=== PATIENT | male | born 1965 | race Caucasian/White ===

== ENCOUNTER 2017-07-11 21:06 | Inpatient (IN) ==
[2017-07-11] MEDS ORDERED: ASPIRIN 81 MG TAB.CHEW ONE (21:14)
[2017-07-11] MEDS ORDERED: NITROGLYCERIN 0.4 MG/TAB BTL SL PRN (21:15)
[2017-07-11] MEDS ORDERED: ASPIRIN 81 MG TAB.CHEW PO ONE (21:15)
[2017-07-11] MEDS ORDERED: NORMAL SALINE 1,000 ML IV ONE (21:35)
[2017-07-11 21:39] LABS: Mean Cell Volume 64.1 fl (78-100); Mean Corpuscular Hemoglobin 16.5 pg (27-31); Mean Corpuscular Hgb Conc 25.8 g/dl (32-36); Mean Platelet Volume 10.9 fl (6.0-9.5); Platelet Count 293 K/mm3 (150-450); Red Blood Count 3.45 M/mm3 (4.7-6.0); Red Cell Distribution Width 21.1 % (11.5-14.0); White Blood Count 5.2 K/mm3 (4.0-10.5)
[2017-07-11 21:41] LABS: Hematocrit 22.1 % (42.0-52.0); Hemoglobin 5.7 gm/dL (13.5-18.0)
[2017-07-11 21:42] LABS: Total Cells Counted 100
[2017-07-11 21:48] LABS: Partial Thrombolplastin Time 21.9 Seconds (24-32)
[2017-07-11 21:49] LABS: ALT 17 U/L (19-67); AST 7 U/L (0-48); Albumin * 3.5 gm/dl (3.4-5.0); Alkaline Phosphatase * 75 U/L (50-170); Anion Gap 12.8 mmol/L (6.8-13.8); BUN/Creatinine Ratio 21.7 (9.0-21.6); Bilirubin, Total 0.3 mg/dL (0.0-1.1); Blood Urea Nitrogen 18 mg/dL (6-23); Ca. Corrected For Albumin 8.5 mg/dL (8.4-10.2); Calcium * 8.4 mg/dL (7.9-10.9); Carbon Dioxide 27.3 mmol/L (24-32.6); Chloride 105 mmol/L (97-106); Glucose * 120 mg/dL (70-110); Potassium 4.1 mmol/L (3.4-4.6); Sodium 141 mmol/L (132-142); Total Protein 6.8 gm/dL (6.2-8.2); Troponin I Less than 0.017 ng/ml (0.00-0.10)
[2017-07-11 22:04] LABS: Atypical (Reactive) Lymph 2 % (0-2); Basophil 1 % (0-1); Eosinophil 2 % (0-3); Lymphocyte 24 % (20-51); Monocyte 2 % (0-9); Neutrophil 69 % (42-75); Neutrophil # 3.6 K/mm3 (1.3-6.0)
[2017-07-11 22:08] LABS: Anisocytosis 2+; Hypochromia 3+; Platelet Estimate Normal (NORMAL)
--- NOTE | 2017-07-11 22:09 | ERNOTE ---
Chest Pain/Cardiac HPI Date of Service: 07/11/17 Chief Complaint: Chest Pain Time Seen by Provider: 07/11/17 21:14 Source: patient Exam Limitations: no limitations Immunizations: IMMUNIZATION HX Immunizations Up to Date Yes History of Influenza Vaccine No Hx Pneumococcal Vaccination No Allergies/Adverse Reactions: Allergies No Known Allergies Allergy (Verified 07/11/17 21:19) Home Medications: HOME MEDICATIONS Multivitamin [Daily Vitamin] 1 each PO DAILY 09/01/13 [Last Taken Unknown] Ubidecarenone [Coq10] 50 mg PO DAILY 09/01/13 [Last Taken Unknown] Aspirin [Aspirin EC] 81 mg PO DAILY #30 tablet. 12/19/14 [Last Taken Unknown] Nitroglycerin 0.4 mg SL ONCE PRN #10 tab.subl 12/19/14 [Last Taken Unknown] Narrative: Pt. comes in with c/o L chest pain that radiates into his L arm and back 10/25 that started at 1730 just prior to arrival when he was pushig a cart at [facility]. Pt. denies any fever, SOB, CP, NVD, alleviating or aggravating factors. Pt. denies any heart history personally but does state that dad had his first OK when he was his age and had a triple bipass a year ago. Timing: getting worse Severity/Quality: moderate, sharp Location: left chest Chest Pain Radiation: arms, back Activities at Onset: activity Modifying Factors - Worsens: Present: nothing Nitro Today/Relief: no nitro taken today Aspirin Treatment Today: no aspirin today Associated Symptoms: Present: shortness of breath, diaphoresis Prior Chest Pain/Cardiac Workup: Reports: no prior cardiac workup. Denies: non- cardiac, angina, heart attack, cardiac cath, echocardiogram, stress test, pulmonary embolism Prior Treatment: Denies: recently seen, treated by physician, recently hospitalized, currently on antibiotics Review of Systems - Review of Systems Constitutional: Present: fatigue. Absent: fever, chills, weakness, malaise EYE: Present: no symptoms reported. Absent: eye pain, double vision ENT: Present: no symptoms reported. Absent: nose pain, nose congestion, nasal drainage, sore throat Respiratory: Present: shortness of breath - with activity. Absent: cough, wheezing Cardiology: Present: chest pain, edema - trace RLE normal for pt.. Absent: palpitations Gastrointestinal/Abdominal: Present: no symptoms reported. Absent: nausea, vomiting, diarrhea, abdominal pain Genitourinary: Present: no symptoms reported. Absent: frequency, decreased urinary output Musculoskeletal: Present: no symptoms reported. Absent: back pain, neck pain, joint pain Skin: Present: no symptoms reported. Absent: rash, change in hair/nails Neurological: Present: no symptoms reported. Absent: headache, dizziness/light- headedness, numbness, tingling All Other Systems: All systems neg except as marked - Patient's Past Medical History Patient History - Medical: No pertinent hx Patient History - Cardiac/Respiratory: No pertinent hx Patient History - Cancer: No Hx of Cancer Patient History - Surgical Procedures: Other Patient History - Other: None - Family History Father Family History - Cardiac/Respiratory: Coronary Heart Disease, Other Brother Family History - Cardiac/Respiratory: Coronary Heart Disease - Social History Living Situations: home Abuse History: No History of abuse Psych History: No pertinent hx Smoking Status: Never smoker Have you smoked in the past 12 months: No Do you dip or chew tobacco: No Alcohol Use: occasionally Drug Use: none - Immunizations Immunizations Up to Date: Yes Hx Pneumococcal Vaccination: No History of Influenza Vaccine: No Physical Exam - Physical Exam General Appearance: Present: wd/wn, alert, no apparent distress Head Exam: Present: normal inspection, no evidence of injury, no tenderness w palpation Eye Exam: Normal inspection: bilateral Ears, Nose, Throat: Present: normal ENT inspection, normal pharynx Neck: Present: normal inspection, nontender, supple, full range of motion. Absent: lymphadenopathy (R), lymphadenopathy (L) Respiratory: Present: no respiratory distress, normal breath sounds, no accessory muscle use, lungs clear, chest tenderness - L lateral chest Cardiovascular/Chest: Present: regular rate, rhythm, no murmur, normal peripheral pulses Gastrointestinal/Abdominal: Present: normal bowel sounds, nontender, nondistended, soft, no organomegaly Back Exam: Present: normal inspection Extremity Exam: Present: normal inspection Neurological Exam: Present: alert, oriented, normal mood/affect, no motor/ sensory deficits Skin Exam: Present: diaphoresis, pallor ED Progress - Date and Time Seen: Date and Time: 07/12/17 00:20 Discussed with madisyn who discussed with Dr Larkin and she would like a repeat Troponin and D-Dimer and possibly a RLE US prior to admission. Will hold off on the US at this time as I have no reason to US this pt. at this time with negative clementina's sign and negative for calf tenderness and chronically R greater than left nonspecific LE edema non pitting. 07/12/17 01:10 Discussed with Madisyn and she agrees to admit pt for observation for Anemia and R /O CP. - Results and Orders Patient's Lab Results:: I have reviewed the patient's lab results. Results and Orders: Laboratory Results - last 24 hr 07/11/17 07/11/17 07/11/17 21:23 21:23 21:23 WBC 5.2 RBC 3.45 L Hgb 5.7 L* Hct 22.1 L* MCV 64.1 L MCH 16.5 L MCHC 25.8 L RDW 21.1 H Plt Count 293 MPV 10.9 H Neutrophils % (Manual) 69 Lymphocytes % (Manual) 24 Monocytes % (Manual) 2 Eosinophils % (Manual) 2 Basophils % (Manual) 1 Neutrophils # (Manual) 3.6 Lymphocytes # (Manual) 1.2 L Monocytes # (Manual) 0.1 Eosinophils # (Manual) 0.1 Basophils # (Manual) 0.1 Atypic/Reactive Lymphs 2 Platelet Estimate Normal Hypochromasia 3+ Anisocytosis 2+ Elliptocytes 1+ Schistocytes 1+ PT 10.0 INR (Anticoag Therapy) 1.00 PTT (Jenny) 21.9 L Sodium 141 Plasma Sodium 141 Potassium 4.1 Chloride 105 Carbon Dioxide 27.3 Anion Gap 12.8 BUN 18 Creatinine 0.83 Est GFR (Non-Af Amer) 104 D BUN/Creatinine Ratio 21.7 H Random Glucose 120 H Calcium 8.4 Calcium Adj for Albumin 8.5 Total Bilirubin 0.3 AST 7 ALT 17 L Alkaline Phosphatase 75 Troponin I Less than 0.017 Total Protein 6.8 Albumin 3.5 Stool Occult Blood Blood Type Antibody Screen Crossmatch 07/11/17 07/11/17 07/11/17 21:57 22:49 23:31 WBC RBC Hgb 5.4 L* Hct 21.6 L* MCV MCH MCHC RDW Plt Count MPV Neutrophils % (Manual) Lymphocytes % (Manual) Monocytes % (Manual) Eosinophils % (Manual) Basophils % (Manual) Neutrophils # (Manual) Lymphocytes # (Manual) Monocytes # (Manual) Eosinophils # (Manual) Basophils # (Manual) Atypic/Reactive Lymphs Platelet Estimate Hypochromasia Anisocytosis Elliptocytes Schistocytes PT INR (Anticoag Therapy) PTT ([place]) Sodium Plasma Sodium Potassium Chloride Carbon Dioxide Anion Gap BUN Creatinine Est GFR (Non-Af Amer) BUN/Creatinine Ratio Random Glucose Calcium Calcium Adj for Albumin Total Bilirubin AST ALT Alkaline Phosphatase Troponin I Total Protein Albumin Stool Occult Blood Negative Blood Type O Negative Antibody Screen Negative Crossmatch See Detail - Vital Signs Patient's Vital Signs:: I have reviewed the patient's vital signs. Vital Signs: Vital Signs 07/11/17 07/11/17 07/11/17 21:16 21:17 21:22 Temperature 36.3 C L 36.7 C Pulse Rate 69 62 64 Respiratory 13 18 18 Rate Blood Pressure 127/73 127/73 74/34 O2 Sat by Pulse 99 98 98 Oximetry - EKG EKG: RBBB, other - SR with First degree av block EKG read: Interp. by me - Progress/Reassessment Chief Complaint: Chest Pain Progress:: Improved Departure Clinical Impression: Chest pain Qualifiers: Chest pain type: unspecified Qualified Code(s): R07.9 - Chest pain, unspecified Anemia Qualifiers: Anemia type: unspecified type Qualified Code(s): D64.9 - Anemia, unspecified - Departure Disposition: Still a patient Condition: Serious
[2017-07-11 22:10] LABS: Schistocytes 1+
[2017-07-11 23:09] LABS: Hematocrit 21.6 % (42.0-52.0); Hemoglobin 5.4 gm/dL (13.5-18.0)
--- NOTE | 2017-07-12 01:27 | HP ---
Chief Complaint - Chief Complaint Date of Service: 07/12/17 Time of Service: 01:26 Chief Complaint: " Chest Pain, Palpitation, SOB, Fatigue". Source of HPI- Pt; reliable, ERP report. History of Present Illness: Mr. Sarah is a 52-yr-old WM pt with no pertinent medical history. He admits that he seldomly sees a doctor. He states that he first developed LT sided chest pain on Sunday 07/09, but the pain went away. Then on Monday 07/10, he had pizza at a local dinner and later developed the same pain on his LT chest. He attributed his symptoms to spices on pizza. Today, he states that he felt very tired and wanted to sleep most of the day. His forced him to wake up so that they can go for Grocery shopping at [facility]. While pushing the cart out of the store, he states thay his LT side chest pain came back and it felt like a stabbing pain. He rated the pain at a 8/10 when it first occurred and he had pain and numbness radiation down on his LT arm. He reports the accompanying symptoms of extreme SOB, Palpitations and diaphoresis. He demanded his to drive him fast to the hospital. At the ED, he was given Nitro SL and loading dose of Aspirin, which provided chest pain relief and at the time of exam, he rates it at a 1/10. He reports that the only pain he is experiencing is under his LT lower rib cage. On exam, there is no reproduction of pain on chest wall palpation. The first troponin was negative at 0.017 and the EKG did not have any ST-T changes. He has significant risk factor for ACS/MT which involve; Father with MT in his 50s and quadruple bypass in 70s, and Brother with MT at the age of 48 yrs. Pt is obese and leads a sedentary life style. He quit smoking 30 yrs ago. Pt was also found to be severely anemic with Hgb of 5.7mg/ dL. He denies any blood loss in stool and no hematuria. He denies use of NSAID and alcohol intake. Pt will be admitted under observation status for a full cardiac evaluation, Blood transfusion and Anemia work-up. - Patient's Past Medical History Patient History - Medical: No pertinent hx Patient History - Cardiac/Respiratory: No pertinent hx Patient History - Cancer: No Hx of Cancer Patient History - Surgical Procedures: Other Patient History - Other: None - Family History Father Family History - Cardiac/Respiratory: Coronary Heart Disease, Myocardial Infarction - in the age of 50's, Had quadruple bypass in his 70s, Other Brother Family History - Cardiac/Respiratory: Coronary Heart Disease, Myocardial Infarction - at the age of 48 yrs. Mother Family History - Medical: No pertinent hx - Social History Living Situations: home Abuse History: No History of abuse Psych History: No pertinent hx Smoking Status: Never smoker Have you smoked in the past 12 months: No Do you dip or chew tobacco: No Alcohol Use: occasionally Drug Use: none - Immunizations Immunizations Up to Date: Yes Hx Pneumococcal Vaccination: No History of Influenza Vaccine: No Review Of Systems (GEN) - Review of Systems Generalized/Overall Review: Present: Weakness, Fatigue. Absent: Chills, Fever, Malaise, Diaphoresis EENTM: Absent: Eye Pain, Blurred Vision Respiratory: Present: Shortness of Breath. Absent: Cough, Wheezing Cardiac: Present: Chest Pain, Palpitations. Absent: Edema, Syncope Abdominal: Absent: Nausea, Vomiting, Abdominal Pain, Constipation, Melena, Bright blood from rectum Genitourinary: Absent: Frequency, Hematuria Musculoskeletal: Absent: Joint Pain, Back Pain Neurological: Absent: Headache, Anxiety, Depressed Skin: Absent: Dryness, Lesions, Bruising Endocrine: Absent: Increased Hunger Misc: All systems neg except as marked Allergies/Adverse Reactions: Allergies Allergy/AdvReac Type Severity Reaction Status Date / Time No Known Allergies Allergy Verified 07/11/17 21:19 Home Medications: HOME MEDICATIONS Multivitamin [Daily Vitamin] 1 each PO DAILY 09/01/13 [Last Taken Unknown] Ubidecarenone [Coq10] 50 mg PO DAILY 09/01/13 [Last Taken Unknown] Exam - Exam Vital Signs: Vital Signs - Last Taken Temp 37.1 C 07/11/17 23:39 Pulse 65 07/11/17 23:39 Resp 16 07/11/17 23:39 BP 128/75 07/11/17 23:39 Pulse Ox 100 07/11/17 23:39 Constitutional: Present: Alert, Oriented x3, Cooperative, No distress ENT Exam: Present: normal ENT inspection Eye Exam: bilateral eye: normal inspection, PERRL Neck: Present: non-tender, full range of motion, supple Back Exam: Present: normal inspection, no CVA tenderness Breasts: Present: Exam deferred Respiratory: Present: lungs clear, No rales, No wheezing Cardiovascular/Chest: Present: normal peripheral pulses, regular rate, rhythm, no chest tenderness Abdomen: Present: Normal bowel sounds, soft, nontender, obese /Rectal: Present: Exam deferred Extremity: Present: normal range of motion, non-tender, normal inspection Skin Exam: Present: warm/dry, no cyanosis Neurologic: Present: no motor/sensory deficits, alert, oriented x 3, dizzy/light -headedness Appearance: Present: appropriate appearance, appropriate insight Eye contact: Present: cooperative, good eye contact, normal speech Thoughts: Present: no apparent hallucination Diagnostic Studies: Laboratory Results WBC 5.2 K/mm3 (4.0-10.5) 07/11/17 21:23 RBC 3.45 M/mm3 (4.7-6.0) L 07/11/17 21:23 Hgb 5.4 gm/dL (13.5-18.0) L* 07/11/17 22:49 Hct 21.6 % (42.0-52.0) L* 07/11/17 22:49 MCV 64.1 fl (78-100) L 07/11/17 21:23 MCH 16.5 pg (27-31) L 07/11/17 21:23 MCHC 25.8 g/dl (32-36) L 07/11/17 21:23 RDW 21.1 % (11.5-14.0) H 07/11/17 21:23 Plt Count 293 K/mm3 (150-450) 07/11/17 21:23 MPV 10.9 fl (6.0-9.5) H 07/11/17 21:23 Neutrophils % (Manual) 69 % (42-75) 07/11/17 21:23 Lymphocytes % (Manual) 24 % (20-51) 07/11/17 21:23 Monocytes % (Manual) 2 % (0-9) 07/11/17 21:23 Eosinophils % (Manual) 2 % (0-3) 07/11/17 21: Basophils % (Manual) 1 % (0-1) 07/11/17 21:23 Neutrophils # (Manual) 3.6 K/mm3 (1.3-6.0) 07/11/17 21:23 Lymphocytes # (Manual) 1.2 k/mm3 (1.5-3.5) L 07/11/17 21:23 Monocytes # (Manual) 0.1 k/mm3 (0.0-1.0) 07/11/17 21:23 Eosinophils # (Manual) 0.1 k/mm3 (0.0-0.7) 07/11/17 21:23 Basophils # (Manual) 0.1 k/mm3 (0.0-0.1) 07/11/17 21:23 Atypic/Reactive Lymphs 2 % (0-2) 07/11/17 21:23 Platelet Estimate Normal (NORMAL) 07/11/17 21:23 Hypochromasia 3+ 07/11/17 21:23 Anisocytosis 2+ 07/11/17 21:23 Elliptocytes 1+ 07/11/17 21: Schistocytes 1+ 07/11/17 21:23 PT 10.0 Seconds (9.0-11.0) 07/11/17 21:23 INR (Anticoag Therapy) 1.00 INR (0.90-1.10) 07/11/17 21:23 PTT (Jenny) 21.9 Seconds (24-32) L 07/11/17 21:23 D-Dimer 0.47 mg/L (0.19-0.49) 07/12/17 00:15 Sodium 141 mmol/L (132-142) 07/11/17 21:23 Plasma Sodium 141 mmol/L (130-142) 07/11/17 21:23 Potassium 4.1 mmol/L (3.4-4.6) 07/11/17 21:23 Chloride 105 mmol/L (97-106) 07/11/17 21:23 Carbon Dioxide 27.3 mmol/L (24-32.6) 07/11/17 21: Anion Gap 12.8 mmol/L (6.8-13.8) 07/11/17 21:23 BUN 18 mg/dL (6-23) 07/11/17 21:23 Creatinine 0.83 mg/dL (0.4-1.4) 07/11/17 21:23 Est GFR (Non-Af Amer) 104 mL/min (60-130) D 07/11/17 21:23 BUN/Creatinine Ratio 21.7 (9.0-21.6) H 07/11/17 21:23 Random Glucose 120 mg/dL (70-110) H 07/11/17 21:23 Calcium 8.4 mg/dL (7.9-10.9) 07/11/17 21:23 Calcium Adj for Albumin 8.5 mg/dL (8.4-10.2) 07/11/17 21:23 Total Bilirubin 0.3 mg/dL (0.0-1.1) 07/11/17 21:23 AST 7 U/L (0-48) 07/11/17 21: ALT 17 U/L (19-67) L 07/11/17 21: Alkaline Phosphatase 75 U/L (50-170) 07/11/17 21: Troponin I Less than 0.017 ng/ml (0.00-0.10) 07/11/17 23:54 Total Protein 6.8 gm/dL (6.2-8.2) 07/11/17 21:23 Albumin 3.5 gm/dl (3.4-5.0) 07/11/17 21:23 Stool Occult Blood Negative 07/11/17 23:31 Blood Type O Negative 07/11/17 21:57 Antibody Screen Negative 07/11/17 21:57 Crossmatch See Detail 07/11/17 21:57 Assessment/Plan - Assessment/Plan (1) Chest pain, rule out acute myocardial infarction Assessment: Pt is s 52-yr-old WM who presented with chest pain with associated symptoms of dyspnea, palpitations and diaphoresis. He described the pain as stabbing in nature accompanied with pain & numbness radiating down his LT arm. The pain was relieved by Nitro SL and Aspirin at the ED. The 2 sets of troponin and EKG was negative of ACS. However he has risk factors for ACS by history and symptom presentation. Therefore it will be reasonable to perform Pharmacological cardiac stress testing before discharge. Will repeat Troponin and EKG in am. He will be placed on telemetry monitoring. Work-up at the ED eliminated other life threatening causes of chest pain. CTA did not show any evidence AAA or Aotic dissection. D-dimer was negative hence pulmonary embolism unlikely and No hypoxia, tachypnea and tachycardia noted at presentation and while at the ED. Acute Heart failure unlikely; BNP--> 89. Other non cardiac causes of chestpain could also be from Severe Anemia for which he will receive at least 3-4 units of PRBC to a goal of 10 to avoid complications such as MT. Problem: Acute (2) Anemia Assessment: Pt reported fatigue, PEREYRA, chest pain. He denies any BRBPR, no hematuria, NSAIDs and Alcohol use. Occult stool was negative. His anemia is Microcytic on category. Consider these testing: RTC count, Iron deficiency screening- ferritin , serum iron, TIBC and the results will guide additional testing/studies. Will give 3-4 units of PRBCs. Transfuse to a goal of 10mg/dL. Problem: Acute
[2017-07-12] MEDS ORDERED: NORMAL SALINE 1,000 ML IV PRN (01:38)
[2017-07-12] MEDS ORDERED: ACETAMINOPHEN 325 MG TABLET PO PRN (03:15)
[2017-07-12 06:14] LABS: Iron 9 mcg/dL (35-120); Transferrin Sat. (% Sat.) 2 % (15-55)
[2017-07-12 06:27] LABS: Ferritin 3 ng/mL (26-388); Iron 9 mcg/dL (35-120)
[2017-07-12 06:28] LABS: Troponin I Less than 0.017 ng/ml (0.00-0.10)
[2017-07-12 08:19] LABS: Hematocrit 24.6 % (42.0-52.0)
[2017-07-12 09:11] LABS: Hemoglobin 6.6 gm/dL (13.5-18.0)
[2017-07-12] MEDS: FERROUS SULFATE 325 MG TABLET PO SCH ×3 (10:10→16:38)
[2017-07-12 10:17] LABS: Hematocrit 24.5 % (42.0-52.0); Hemoglobin 6.6 gm/dL (13.5-18.0); Mean Cell Volume 68.1 fl (78-100); Mean Corpuscular Hemoglobin 18.3 pg (27-31); White Blood Count 5.4 K/mm3 (4.0-10.5)
[2017-07-12 10:18] LABS: Mean Corpuscular Hgb Conc 26.9 g/dl (32-36); Platelet Count 210 K/mm3 (150-450); Red Cell Distribution Width 24.3 % (11.5-14.0)
[2017-07-12 10:22] LABS: Total Cells Counted 100
[2017-07-12 10:35] LABS: Basophil 1 % (0-1); Eosinophil 1 % (0-3); Lymphocyte 29 % (20-51); Monocyte 3 % (0-9); Neutrophil 66 % (42-75); Neutrophil # 3.6 K/mm3 (1.3-6.0)
[2017-07-12 10:45] LABS: Anisocytosis 3+; Hypochromia 2+; Macrocytosis 1+; Microcytosis 1+; Schistocytes 2+; Spherocyte 2+; Target Cells 1+
[2017-07-12 10:46] LABS: Platelet Estimate Normal (NORMAL)
[2017-07-12] MEDS: MULTIVITAMINS 1 CAP CAPSULE PO SCH (10:56)
[2017-07-12 11:11] LABS: Folate 15.1 ng/mL (>5.4)
--- NOTE | 2017-07-12 12:02 | PATHPSR ---
PHYSICIAN: Ginette Larkin DO LAB#: [id number] SPECIMEN DATE: 07/12/2017 CLINICAL INFORMATION: The patient is a 52-year-old man who presents to the emergency room with chest pain. EKG findings and troponin rule out acute myocardial infarction at the time of this review. The patient has severe anemia , hemoglobin 5.4 g/dL on admission. Iron studies show profound iron deficiency with ferritin 3 ng/mL, Iron 9 mcg/dL. B12 373 pg/ml, Folate 15.1 ng/ml. Peripheral review by pathologist is ordered by technologist due to severe red cell abnormalities on peripheral smear review. Review is based on most recent CBC with reticulocyte determination (post transfusion of 2 packed red cells units) but the original peripheral smear is also reviewed. CBC: WBC 5.4 K/mm3, hemoglobin 6.6 gm/dl, hematocrit 24.5 %, MCV is 68.1 fl, MCH is 18.3 pg, MCHC is 26.2 g/dl, Platelet count 210,000/mm3. Manual differential: Neutrophils 66%, bands 0 %, lymphocytes 29 %, monocytes 3 %, eosinophils 1 %, basophils 1 %, atypical reactive lymphocytes 0 %. 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 The source of this iron deficiency anemia has not been determined. Absolute reticulocyte count and reticulocyte count is within normal range suggesting that increased destruction is not contributing to the anemia even though there are some red cell abnormalities. Haptoglobin to exclude hemolysis has been orderd. Follow-up to be sure that the patient responds to transfusion and iron supplementation is suggested. If the patient does not respond to iron supplementation, hematology consultation is suggested. No immature elements or malignancy is identified on our examination. The findings are discussed with Dr. Ginette Larkin.
[2017-07-12 16:06] LABS: Hematocrit 30.6 % (42.0-52.0); Hemoglobin 8.5 gm/dL (13.5-18.0)
[2017-07-12 20:47] LABS: Hematocrit 30.1 % (42.0-52.0); Hemoglobin 8.4 gm/dL (13.5-18.0); Mean Corpuscular Hemoglobin 19.3 pg (27-31); Mean Corpuscular Hgb Conc 27.9 g/dl (32-36); Platelet Count 238 K/mm3 (150-450); Red Blood Count 4.36 M/mm3 (4.7-6.0); Red Cell Distribution Width 24.9 % (11.5-14.0)
[2017-07-13 05:32] LABS: Hematocrit 29.4 % (42.0-52.0); Hemoglobin 8.1 gm/dL (13.5-18.0); Mean Cell Volume 69.5 fl (78-100); Mean Corpuscular Hemoglobin 19.1 pg (27-31); Mean Corpuscular Hgb Conc 27.6 g/dl (32-36); Platelet Count 231 K/mm3 (150-450); Red Blood Count 4.23 M/mm3 (4.7-6.0); Red Cell Distribution Width 25.1 % (11.5-14.0); White Blood Count 5.6 K/mm3 (4.0-10.5)
[2017-07-13 05:44] LABS: Hemoglobin A1C 6.3 % (4.00-6.0)
--- NOTE | 2017-07-13 07:16 | DS ---
<Odalys Tom - Last Filed: 07/13/17 07:18> (1) Anemia Problem: Acute QualifierTitle: Anemia type: iron deficiency (2) Chest pain, rule out acute myocardial infarction Problem: Resolved Description of Stay: Date of adm 07/12/2017 Date of discharge 07/13/2017 Reason for adm HPI obtained by: Madisyn anthony 52-yr-old WM pt with no pertinent medical history. He admits that he seldomly sees a doctor. He states that he first developed LT sided chest pain on Sunday 07/09, but the pain went away. Then on Monday 07/10, he had pizza at a local diner and later developed the same pain on his LT chest. He attributed his symptoms to spices on pizza. The day of adm he stated, he felt very tired and wanted to sleep most of the day. His forced him to wake up so that they can go for Grocery shopping at [facility]. While pushing the cart out of the store, he states that his LT side chest pain came back and it felt like a stabbing pain. He rated the pain at a 8/10 when it first occurred and he had pain and numbness radiation down on his LT arm. He reports the accompanying symptoms of extreme SOB, Palpitations and diaphoresis. He demanded his to drive him fast to the hospital. At the ED, he was given Nitro SL and loading dose of Aspirin, which provided chest pain relief and at the time of exam, he rates it at a 1/10. He reports that the only pain he is experiencing is under his LT lower rib cage. On exam, there is no reproduction of pain on chest wall palpation. The first troponin was negative at 0.017 and the EKG did not have any ST-T changes. He has significant risk factor for ACS/MA which involve; Father with MA in his 50s and quadruple bypass in 70s, and Brother with MA at the age of 48 yrs. Pt is obese and leads a sedentary life style. He quit smoking 30 yrs ago. Pt was also found to be severely anemic with Hgb of 5.7mg/ dL. He denies any blood loss in stool and no hematuria. He denies use of NSAID and alcohol intake. Pt will be admitted under observation status for a full cardiac evaluation, Blood transfusion and Anemia work-up. Hospital course During this adm pt Chest pain was relieved and serial troponin negative and no changes on EKG. He his S/P 4 UPRBC for Hgb 5.7 /Hct 22.1., that gradually improved to Hgb 8.[address] Dr mccollum, pt peripheral smear: Hyperchromic microcysytic anemia. Pt has profound low iron studies and red cell abnormality, may be secondary to severe iron deficiency anemia. Source have not been determined. No immature elements or malignancy is identified on exam. Stool for occult blood was negative. He was initiated on oral Ferrous sulfate. Anticipate discharge home with ferrous sulfate and colace day. Follow up with PCP to make sure pt continue to responding well to transfusion and oral iron. New medication Ferrous sulfate 325mg Po TID Colace 100mg PO Q day Complete Home Medication List: Multivitamin [Daily Vitamin] 1 each PO DAILY 09/01/13 Ubidecarenone [Coq10] 50 mg PO DAILY 09/01/13 Docusate Sodium [Colace] 100 mg PO DAILY #30 cap 07/13/17 Ferrous Sulfate 325 mg PO TIDWM #30 tablet 07/13/17 Procedures Performed: none Results and Findings: Laboratory Tests 07/11/17 07/11/17 07/11/17 21:23 21:23 23:31 Hgb Hct MCV MCH MCHC RDW Peripheral Blood Smear Immature Retic Fraction Retic Hgb Content PT 10.0 INR (Anticoag Therapy) 1.00 D-Dimer BUN 18 Creatinine 0.83 Est GFR (Non-Af Amer) 104 D BUN/Creatinine Ratio 21.7 H Stool Occult Blood Negative 07/12/17 07/12/17 07/12/17 00:15 08:07 09:12 Hgb 6.6 L* D 6.6 L* Hct 24.6 L 24.5 L MCV 68.1 L MCH 18.3 L MCHC 26.9 L RDW 24.3 H Peripheral Blood Smear Immature Retic Fraction 28.5 H 36.6 H Retic Hgb Content 16.0 L 16.0 L PT INR (Anticoag Therapy) D-Dimer 0.47 BUN Creatinine Est GFR (Non-Af Amer) BUN/Creatinine Ratio Stool Occult Blood 07/12/17 07/12/17 07/12/17 11:00 16:05 20:39 Hgb 8.5 L 8.4 L Hct 30.6 L 30.1 L MCV 69.0 L MCH 19.3 L MCHC 27.9 L RDW Peripheral Blood Smear Smear sent to path. Immature Retic Fraction Retic Hgb Content PT INR (Anticoag Therapy) D-Dimer BUN Creatinine Est GFR (Non-Af Amer) BUN/Creatinine Ratio Stool Occult Blood 07/13/17 05:25 Hgb 8.1 L Hct 29.4 L MCV 69.5 L MCH 19.1 L MCHC 27.6 L RDW 25.1 H Peripheral Blood Smear Immature Retic Fraction Retic Hgb Content PT INR (Anticoag Therapy) D-Dimer BUN Creatinine Est GFR (Non-Af Amer) BUN/Creatinine Ratio Stool Occult Blood Discharge Location: Home Disposition: Home self-care Condition: Stable Discharge Activity: Activity as tolerated Discharge Diet: General/regular food, High Fiber Problem Oriented Discharge Instructions to Patient/Family: Iron Deficiency Anemia, Adult Additional Patient Instructions (free text): -Follow-up with Dr. Larkin next week on 07-22-17 @ 11:00 am. please arrive a little early for paperwork. -Check hemogram on 07/15/2017 Prescriptions (Any new or edited meds): Docusate Sodium [Colace] 100 mg PO DAILY #30 cap Ferrous Sulfate 325 mg PO TIDWM #30 tablet Complete Home Medications List: Complete Home Medication List: Multivitamin [Daily Vitamin] 1 each PO DAILY 09/01/13 Ubidecarenone [Coq10] 50 mg PO DAILY 09/01/13 Docusate Sodium [Colace] 100 mg PO DAILY #30 cap 07/13/17 Ferrous Sulfate 325 mg PO TIDWM #30 tablet 07/13/17 Amb Orders for Discharge: Hemogram Time Frame: 07/15/17, Location: Determined By Patient <Ginette Larkin - Last Filed: 07/13/17 10:58> (1) Iron deficiency anemia Problem: Acute (2) Demand ischemia Problem: Resolved Procedures Performed: none Discharge Location: Home Discharge Activity: Activity as tolerated Discharge Diet: General/regular food, Low fat/chol
[2017-07-13] MEDS: FERROUS SULFATE 325 MG TABLET PO SCH (10:05)
[2017-07-13] MEDS: MULTIVITAMINS 1 CAP CAPSULE PO SCH (10:05)
[2017-07-13 10:49] VITALS: BP 143/85
[2017-07-21 14:01] LABS: Haptoglobin 126 mg/dL
== END 2017-07-13 11:11 | disposition home or self-care (01) | DRG 812 ==
LOC: ER 21:06 → UNDOADMOB 07-12 01:18 → MS 07-12 01:18 → OBSVTOIN 07-12 11:53
PROVIDERS: ADMIT Nurse Practitioner; ATTEND Internal Medicine
DX: Z82.49 Family history of ischemic heart disease and other diseases of the circulatory system; D50.9 Iron deficiency anemia, unspecified; I24.8 Other forms of acute ischemic heart disease
CPT/HCPCS: 36415; 71275; 74175; 80053; 82272; 82607; 82728; 82746; 83010; 83036; 83519; 83540; 83550; 83615; 83880; 84484; 85007; 85014; 85018; 85025; 85027; 85045; 85060; 85379; 85610; 85730; 86850; 86900; 93005; P9016